=== PATIENT | female | born 1975 | race Caucasian/White ===

== ENCOUNTER → 2017-02-25 | Outpatient (CLI) | payer OTHER ==
[~2017-02-25] MED LIST: ATEN-100 PO; CITA20TA4 PO; LANSO30; LEVO.075 PO; LEVO125T3 PO; LORC10TA24
[2017-02-25 07:55] LABS: HEMATOCRIT 33.4 % (35.0-46.0); MEAN CELL VOLUME 74.4 FL (80.0-100.0); MEAN CORPUSCULAR HEMOGLOBIN 24.1 PG (27.0-34.0); MEAN CORPUSCULAR HGB CONC 32.4 % (32.0-36.0); PLATELET COUNT 349 TH/MM3 (150-450); RED BLOOD COUNT 4.49 MIL/MM3 (4.00-5.30); RED CELL DISTRIBUTION WIDTH 15.1 % (11.6-17.2); WHITE BLOOD COUNT 9.9 TH/MM3 (4.0-11.0)
[2017-02-25 07:57] LABS: REVIEW FLAG FINAL
[2017-02-25 08:04] LABS: ANION GAP 6 MEQ/L (5-15); AST (GOT) 12 U/L (15-37); BLOOD UREA NITROGEN 10 MG/DL (7-18); CHLORIDE 106 MEQ/L (98-107); GLUCOSE,FASTING 116 MG/DL (74-99); POTASSIUM 3.4 MEQ/L (3.5-5.1); SODIUM (NA) 139 MEQ/L (136-145)
[2017-02-25 08:12] LABS: ALKALINE PHOSPHATASE 91 U/L (45-117); ALT (GPT) 16 U/L (10-53); FREE T4 1.52 NG/DL (0.76-1.46); GLOMERULAR FILTRATION RATE 90 ML/MIN (>89); HDL CHOLESTEROL 52.8 MG/DL (40.0-60.0); LDL CHOLESTEROL 56 MG/DL (0-99); TOTAL BILIRUBIN ADULT 0.2 MG/DL (0.2-1.0)
[2017-02-27 11:52] LABS: IGA SERUM 284 mg/dL (81-463); TISSUE TRANSGLUTAMINASE AB IGG ND U/mL (())
[2017-02-27 15:53] LABS: ENDOMYSIAL AB TITER ND (<1:5); TISSUE TRANSGLUTAMINASE AB LESS THAN 1 U/mL (())
== END ==
LOC: CLAB 07:13
PROVIDERS: ATTEND Internal Medicine Interventional Cardiology
DX: K58.0 Irritable bowel syndrome with diarrhea (principal); R00.0 Tachycardia, unspecified; E03.9 Hypothyroidism, unspecified; R00.2 Palpitations; Z79.899 Other long term (current) drug therapy
CPT/HCPCS: 36415; 80053; 80061; 82784; 83516; 84439; 84443; 85027

== ENCOUNTER → 2017-09-19 | Outpatient (CLI) | payer OTHER ==
[2017-09-19 08:31] LABS: TRANSFERRIN IRON PROFILE 294 MG/DL (200-360)
[2017-09-19 08:40] LABS: FERRITIN 9 NG/ML (8-252); FREE T4 1.59 NG/DL (0.76-1.46)
== END ==
LOC: CLAB 07:15
PROVIDERS: ATTEND Family Medicine
DX: D64.9 Anemia, unspecified (principal); E66.9 Obesity, unspecified
CPT/HCPCS: 36415; 82728; 83540; 83550; 84439; 84443